=== PATIENT | female | born 1990 | race African-American/Black ===

== ENCOUNTER → 2018-04-23 | Outpatient (CLI) | payer OTHER ==
--- NOTE | 2018-04-23 14:40 | Diagnostic Imaging Report ---
PROCEDURE:ABDOMINAL ULTRASOUND COMPARISON:None. INDICATIONS:Nausea and vomiting FINDINGS: Liver: 16.4 cm in length. Normal hepatic parenchymal echogenicity. No focal mass. Main portal vein: 0.9 cm in diameter. Hepatopetal flow. Gallbladder: No stones, sludge. No wall thickening, hydrops, pericholecystic fluid. Common Bile Duct: 0.3 cm in diameter. No echogenic filling defect. Sonographic Edmonds's sign: Negative Right kidney: 10.5 x 4.9 x 5.6 cm. No solid or cystic mass, echogenic calculi, or hydronephrosis. Normal parenchymal echogenicity. Left kidney: 10.6 x 6.3 x 4.7 cm. No solid or cystic mass, echogenic calculi, or hydronephrosis. Normal parenchymal echogenicity. Spleen: 9 cm in length, normal in size. . No focal mass. Pancreas: The visualized portions of the pancreas are normal. Inferior vena cava: Visualized portions are normal. Aorta: Visualized portions are normal. Ascites: None. CONCLUSION: No acute sonographic abnormality. Dictated by: Eddie Del Valle M.D. on 04/23/2018 at 14:43 Electronically approved by: Eddie Del Valle M.D. on 04/23/2018 at 14:43
--- NOTE | 2018-04-23 15:16 | Diagnostic Imaging Report ---
PROCEDURE: Transabdominal ultrasound imaging of the pelvis was performed. COMPARISON: None. INDICATIONS: Pelvic and Perineal Pain Clinical history: 27 year-old A0, LMP 03/15/2018 FINDINGS: UTERUS: The uterus measures 9.5 x 4.1 x 5.4 cm. The endometrial echocomplex measures 0.8 cm in thickness, within normal limits. OVARIES/ADNEXA: Unremarkable. Right ovarian 2 x 1.7 x 1.4 cm follicle. PELVIS: No free fluid. IMPRESSION: Unremarkable transabdominal pelvic ultrasound exam. Dictated by: Eddie Del Valle M.D. on 04/23/2018 at 15:19 Electronically approved by: Eddie Del Valle M.D. on 04/23/2018 at 15:19
== END ==
LOC: US 13:46
PROVIDERS: ATTEND Family Medicine
DX: R10.2 Pelvic and perineal pain (principal); R11.2 Nausea with vomiting, unspecified
CPT/HCPCS: 76700; 76856